=== PATIENT | male | born 1935 | race Asian ===

== ENCOUNTER → 2018-08-26 | Outpatient (CLI) | payer MEDICARE, BC ==
[~2018-08-26] MED LIST: ALPR0.254 PO; AMLO2.5T3 PO; ASPI-496 PO; CALC-10 PO; CETI10TA18 PO; CHOL200052 PO; FINA5TAB4 PO; FLUO15CR8 TD; GLUC500T11 PO; LOSA100T7 PO; METO25TA35 PO; MV W1TAB2 PO; SIMV40TA3 PO; TAMS0.4C2 PO; TOPI25TA8 PO; UBID10CA5 PO
== END | disposition home or self-care (01) ==
LOC: CVU 15:34
PROVIDERS: ATTEND Internal Medicine Cardiovascular Disease
DX: I65.23 Occlusion and stenosis of bilateral carotid arteries (principal); I25.10 Atherosclerotic heart disease of native coronary artery without angina pectoris; I10 Essential (primary) hypertension; E78.5 Hyperlipidemia, unspecified
CPT/HCPCS: 93880